=== PATIENT | male | born 1995 ===

== ENCOUNTER 2020-02-19 07:26 | Emergency (ER) | payer SELFPAY ==
[~2020-02-19] VITALS: Ht 167.6 cm; Wt 55.0 kg
[2020-02-19 08:44] LABS: BASOPHILS % 0.9 % (0.0-2.0); EOSINOPHILS % 0.4 % (0.0-5.0); HEMATOCRIT. 47.6 % (42.0-52.0); HEMOGLOBIN. 16.3 g/dL (14.0-18.0); LYMPHOCYTES % 16.3 % (20.0-50.0); MEAN CORPUSCULAR HEMOGLOBIN 30.6 pg (28.0-32.0); MEAN CORPUSCULAR VOLUME 89.3 fL (80.0-94.0); MEAN PLATELET VOLUME 8.4 fl (7.4-10.4); MONOCYTES % 12.9 % (2.0-8.0); NEUTROPHILS % 69.5 % (40.0-76.0); PLATELET 305 x1000/uL (130-400); RED BLOOD CELL COUNT 5.34 mill/uL (4.7-6.1); RED CELL DISTRIBUTION WIDTH 13.7 % (11.6-14.6)
[2020-02-19 08:55] LABS: CHLORIDE 108 mEq/L (98-107)
[2020-02-19 09:00] LABS: ETHANOL BLOOD < 10 mg/dL
[2020-02-19] MEDS ORDERED: SODIUM CHLORIDE 0.9% 1,000 ML IV ONE (09:11)
[2020-02-19 11:18] VITALS: BP 128/78
== END 2020-02-19 11:20 | disposition left against medical advice (07) ==
LOC: ER 07:26
DX: T43.621A Poisoning by amphetamines, accidental (unintentional), initial encounter (principal); Y92.9 Unspecified place or not applicable
CPT/HCPCS: 36415; 80053; 80307; 80320; 80329; 85025; 93005; 99284; J7030; G0480